=== PATIENT | male | born 1980 | race Native Hawaiian/Other Pacific Islander ===

== ENCOUNTER → 2016-07-03 08:50 | Outpatient (CLI) | payer BC | END | disposition home or self-care (01) | LOC: AMB 08:50 | DX: R07.89 Other chest pain (principal); R68.89 Other general symptoms and signs; R19.7 Diarrhea, unspecified | CPT/HCPCS: A0425; A0427 ==

== ENCOUNTER 2018-05-28 08:08 | Outpatient (CLI) | payer BC | END 2018-05-28 19:54 | disposition home or self-care (01) | LOC: LABW 08:08 | DX: Z30.2 Encounter for sterilization (principal) | CPT/HCPCS: 89320 ==

== ENCOUNTER 2019-08-22 15:31 | Outpatient (CLI) | payer BC, OTHER | END 2019-08-22 22:56 | disposition home or self-care (01) | LOC: LAB 15:31 | DX: Z20.828 Contact with and (suspected) exposure to other viral communicable diseases (principal) | CPT/HCPCS: 87635; G2023; U0002 ==

== ENCOUNTER 2019-10-02 09:34 | Outpatient (CLI) | payer BC, OTHER | END 2019-10-02 22:04 | disposition home or self-care (01) | LOC: LAB 09:34 | DX: Z20.828 Contact with and (suspected) exposure to other viral communicable diseases (principal) | CPT/HCPCS: 87635; G2023; U00003 ==

== ENCOUNTER 2019-10-14 09:06 | Outpatient (CLI) | payer BC | END 2019-10-14 19:18 | disposition home or self-care (01) | LOC: MRI 09:06 | DX: M25.561 Pain in right knee (principal); S82.091D Other fracture of right patella, subsequent encounter for closed fracture with routine healing; S80.01XA Contusion of right knee, initial encounter ==

== ENCOUNTER 2020-06-02 14:18 | Outpatient (CLI) | payer BC | END 2020-06-02 20:16 | disposition home or self-care (01) | LOC: RESP 14:18 | PROVIDERS: ATTEND Internal Medicine | DX: R00.2 Palpitations (principal) | CPT/HCPCS: 93225 ==

== ENCOUNTER 2020-06-03 08:07 | Outpatient (CLI) | payer BC ==
[2020-06-03 08:49] LABS: PLATELET COUNT 221 K/uL (142-355)
[2020-06-03 09:13] LABS: POTASSIUM 4.1 mmol/L (3.6-5.2); SODIUM 137 mmol/L (136-145)
== END 2020-06-03 21:04 | disposition home or self-care (01) ==
LOC: LABW 08:07
PROVIDERS: ATTEND Internal Medicine
DX: R00.2 Palpitations (principal)
CPT/HCPCS: 36415; 80053; 80061; 81000; 82550; 84439; 84443; 84484; 85027; 85379

== ENCOUNTER 2020-06-17 08:48 | Outpatient (CLI) | payer BC, OTHER | END 2020-06-17 22:06 | disposition home or self-care (01) | LOC: INF 08:48 | PROVIDERS: ATTEND Internal Medicine | DX: Z23 Encounter for immunization (principal) | CPT/HCPCS: 96372 ==

== ENCOUNTER 2020-07-09 16:00 | Outpatient (CLI) | payer BC, OTHER | END 2020-07-09 22:25 | disposition home or self-care (01) | LOC: INF 16:00 | PROVIDERS: ATTEND Internal Medicine | DX: Z23 Encounter for immunization (principal) ==

== ENCOUNTER 2022-12-12 08:02 | Outpatient (CLI) | payer OTHER ==
[2022-12-12 08:16] LABS: PLATELET COUNT 263 K/uL (142-355)
[2022-12-12 08:36] LABS: POTASSIUM 4.2 mmol/L (3.6-5.2)
== END 2022-12-12 19:02 | disposition home or self-care (01) ==
LOC: LABW 08:02
PROVIDERS: ATTEND Internal Medicine
DX: E66.9 Obesity, unspecified (principal); I10 Essential (primary) hypertension
CPT/HCPCS: 36415; 80053; 80061; 81002; 84439; 84443; 85027